=== PATIENT | female | born 1985 | race African-American/Black ===

== ENCOUNTER 2020-07-04 10:12 | Outpatient (CLI) | payer OTHER, SELFPAY ==
--- NOTE | ~2020-07-04 | XR_ITS ---
EXAMINATION: XR hysterosalpingogram INDICATION: Infertility TECHNIQUE: Hysterosalpingogram was performed by Dr. Annalisa Huston MD with fluoroscopic fran scott. I was present to obtain fluoroscopic images. Fluoroscopy exposure time was 1.0 minutes. The DAP f or this procedure was 12.502 Gycm2. FINDINGS: Fluoroscopic images demonstrate a normal appearing endometrial cavity which has been cannul ated. The lower endocervical canal appears slightly elongated, clinical significance unclear. Upon in jection of contrast, the right fallopian tube does not opacify beyond its proximal portion near the u terine fundus. The left fallopian tube opacifies and free spillage is seen on the left. IMPRESSION: 1. Free spillage on the left and nonfilling of the right fallopian tube beyond its proximal aspect. Reviewed, dictated and finalized at location A.
[2020-07-04 11:21] LABS: Beta HCG Quantitative < 2.39 mIU/ML
== END 2020-07-04 10:13 | disposition home or self-care (01) ==
LOC: ANHIMG 10:22
PROVIDERS: PCP Family Medicine; Visit Provider Obstetrics & Gynecology Gynecology
DX: Z31.41 Encounter for fertility testing (principal)
CPT/HCPCS: 36415; 58340; 74740; 84702

== ENCOUNTER 2020-07-11 10:38 | Outpatient (CLI) | payer OTHER, SELFPAY ==
[2020-07-15 13:33] LABS: Progesterone 17.4 ng/mL (***)
== END 2020-07-11 10:39 | disposition home or self-care (01) ==
LOC: ANHLAB 10:40
PROVIDERS: PCP Family Medicine; Visit Provider Obstetrics & Gynecology Gynecology
DX: Z31.41 Encounter for fertility testing (principal)
CPT/HCPCS: 36415; 84144

== ENCOUNTER 2020-07-25 17:16 | Outpatient (CLI) | payer OTHER, SELFPAY ==
[2020-07-25 19:44] LABS: Vitamin D 25 Hydroxy 28.5 ng/mL
== END 2020-07-25 17:17 | disposition home or self-care (01) ==
LOC: ANHLAB 17:17
PROVIDERS: PCP Family Medicine; Visit Provider Obstetrics & Gynecology Gynecology
DX: E55.9 Vitamin D deficiency, unspecified (principal)
CPT/HCPCS: 36415; 82306

== ENCOUNTER 2020-09-01 13:53 | Outpatient (CLI) | payer OTHER, SELFPAY ==
--- NOTE | ~2020-09-01 | MR_ITS ---
EXAMINATION: MR pituitary wo/w con DATE: 09/01/2020 15:08 INDICATION: Hyperprolactinemia. TECHNIQUE: Magnetic resonance imaging (MRI) of the brain and brainstem was performed without and with 20 mL MultiHance intravenous contrast. Whole-brain sequences included sagittal T1-weighted FSE, axia l diffusion-weighted FS EPI, axial T2*-weighted GRE, axial T2-weighted FLAIR Propeller, and axial T2- weighted Propeller. Small jnccy-rt-rtju sequences included sagittal and coronal T1-weighted FSE cente red at the pituitary. Postcontrast sequences included small mbjhp-oy-wryt coronal T1-weighted FSE in a time course and sagittal T1-weighted FSE and whole-brain axial T1-weighted FSE. Apparent diffusion coefficient (ADC) maps were created. COMPARISON: None. FINDINGS: The pituitary is normal in size with height of 3 mm and concave superior margin. There is n o intracranial hemorrhage, acute infarction, or abnormal intracranial mass lesion. The ventricles are normal in size. There is mild mucosal thickening in the ethmoid sinuses. The orbits are normal. The mastoid air cells are normal. IMPRESSION: 1. Normal brain. Normal pituitary. Reviewed, dictated and finalized at location B. [facility]
[2020-09-01 14:24] LABS: Estimated Glomerular Filt Rate > 60
== END 2020-09-01 13:54 | disposition home or self-care (01) ==
DX: E22.1 Hyperprolactinemia (principal)
CPT/HCPCS: 70553; A9577

== ENCOUNTER 2023-03-11 13:52 | Outpatient (CLI) | payer OTHER, SELFPAY ==
[2023-03-11 14:35] VITALS: BP 137/70; PULSE 89
[2023-03-11 14:42] VITALS: BP 137/70; PULSE 89
[2023-03-11 14:47] VITALS: BP 135/69; PULSE 85
[2023-03-11 14:57] LABS: Basophils Percent Auto 0.2 % (0.2-1.2); Eosinophils Absolute Auto 0.1 K/mm3 (0-0.3); Eosinophils Percent Auto 1.7 % (0-4.4); Hematocrit 34.3 % (37.0-47.0); Hemoglobin 11.3 g/dL (12.0-15.0); Immature Granulocyte Absolute 0.04 K/mm3 (0.00-0.031); Immature Granulocyte Percent A 0.7 % (0-0.5); Lymphocytes Absolute Auto 1.16 K/mm3 (0.9-3.2); Lymphocytes Percent Auto 19.7 % (18.3-44.2); Mean Corpuscular HGB Conc 32.9 g/dl (32-36); Mean Corpuscular Hemoglobin 31.5 pg (26-34); Mean Corpuscular Volume 95.5 fl (80-100); Mean Platelet Volume 8.7 fl (7.4-10.4); Monocytes Absolute Auto 0.4 K/mm3 (0.1-0.6); Monocytes Percent Auto 7.5 % (2.6-8.5); Neutrophils Absolute Auto 4.2 K/mm3 (1.3-6.7); Neutrophils Percent Auto 70.2 % (45.5-73.1); Platelet Count Result 338 k/mm3 (150-375); Red Blood Count 3.59 M/mm3 (4.2-5.4); Red Cell Distribution Width 13.8 % (11.5-14.5); White Blood Count 5.9 K/mm3 (4.5-10.0)
[2023-03-11 14:59] LABS: Appearance Urine Clear (Clear); Bilirubin Urine Negative (Negative); Blood Urine Negative (Negative); Color Urine Yellow (Yellow); Glucose Urine UA Negative (Negative); Ketones Urine Trace mg/dL (Negative); Leukocyte Esterase Ur Negative LEU/UL (NEGATIVE); Nitrate Urine Negative (Negative); Protein Urine Negative (Negative); Specific Grav Ur 1.023 (1.001-1.035); Urobilinogen Urine 0.2 mg/dL (<2.0); pH Urine 6.5 (5.0-9.0)
[2023-03-11 15:02] VITALS: BP 127/65; PULSE 78
[2023-03-11 15:08] LABS: Alanine Aminotransferase 31 U/L (6-35); Albumin Level 3.7 g/dL (3.5-5.1); Alkaline Phosphatase 38 U/L (38-126); Anion Gap 6 mmol/L (8-16); Aspartate Amino Transferase 35 U/L (14-36); Bilirubin,Total 0.2 mg/dL (0.2-1.3); Blood Urea Nitrogen 9 mg/dL (7-17); Calcium 8.4 mg/dL (8.4-10.2); Carbon Dioxide 23 mmol/L (22-30); Chloride 105 mmol/L (98-107); Estimated Glomerular Filt Rate > 60; Glucose 91 mg/dL (65-110); Potassium 3.5 mmol/L (3.4-5.0); Sodium 134 mmol/L (137-145); Uric Acid 3.8 mg/dL (2.5-7.5)
[2023-03-11 15:27] LABS: Add Urine Microscopic? NO
[2023-03-11 15:36] LABS: Creatinine Urine 152.1 mg/dL
--- NOTE | 2023-03-11 15:56 | PC.NURSE ---
called Dr. Huston with PIH lab result and BPs. discharge order received
[2023-03-11 16:47] LABS: Total Protein Urine Random < 5 mg/dL; Ur Ttl Prot Creatinine Ratio < 0.03 mg/mg (0-0.20)
== END 2023-03-11 16:00 | disposition home or self-care (01) ==
LOC: ANHOBOP 14:15 → ANHLDR 14:18
PROVIDERS: Visit Provider Obstetrics & Gynecology Gynecology
DX: O13.9 Gestational [pregnancy-induced] hypertension without significant proteinuria, unspecified trimester (principal); Z3A.00 Weeks of gestation of pregnancy not specified
CPT/HCPCS: 36415; 80053; 81003; 82570; 84156; 84550; 85025; 87086; 99199

== ENCOUNTER 2023-04-06 07:37 | Outpatient (CLI) | payer OTHER, SELFPAY ==
[2023-04-06 07:58] VITALS: BP 138/78; PULSE 87
[2023-04-06 08:01] VITALS: BP 131/75; PULSE 89
[2023-04-06 08:16] VITALS: BP 143/75; PULSE 80
[2023-04-06 08:31] VITALS: BP 143/73; PULSE 80
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
[2023-04-06 08:58] VITALS: BP 138/78
== END 2023-04-06 08:58 | disposition home or self-care (01) ==
LOC: ANHOBOP 07:43 → ANHOBPP 07:44
PROVIDERS: Visit Provider Obstetrics & Gynecology Gynecology
DX: O13.9 Gestational [pregnancy-induced] hypertension without significant proteinuria, unspecified trimester (principal)
CPT/HCPCS: 99199

== ENCOUNTER 2023-05-27 19:13 | Observation (INO) | payer OTHER, SELFPAY ==
[2023-05-27 19:13] VITALS: BMI 52.7
[2023-05-27 19:36] VITALS: BP 140/72; PULSE 85
--- NOTE | 2023-05-27 19:36 | OBADM ---
This patient, Malini Ceja, admitted to the OB room OB Post 117 for observation. Patient/family oriented to hospital policies and general routines including ID bracelet, bed and alarms, visiting hours, pain management, procedures, bathroom and other care routines, personal items, smoking policy, room service/diet, and visiting hours. Patient/Family are encouraged to report perceived risks to care and to ask questions if they do not understand what they are told or what they should do.
--- NOTE | 2023-06-03 13:32 | PM.OBTRLD ---
OB - Triage/Final Diagnosis Visit Information Comments/Additional reasons for admission: I have assessed the risk for this patient, Malini Ceja, and determined that she would benefit from observation care. Final Diagnosis (1) Back pain affecting : Code(s): O99.891 - Other specified diseases and conditions complicating ; M54.9 - Dorsalgia, unspecified Status: Acute
== END 2023-05-27 20:09 | disposition home or self-care (01) ==
PROVIDERS: Admitting Provider Obstetrics & Gynecology; Visit Provider Obstetrics & Gynecology
DX: O99.891 Other specified diseases and conditions complicating pregnancy (principal); M54.9 Dorsalgia, unspecified; Z3A.25 25 weeks gestation of pregnancy
CPT/HCPCS: G0378; G0379

== ENCOUNTER 2023-07-09 15:59 | Outpatient (RCR) | payer OTHER, SELFPAY ==
--- NOTE | ~2023-07-09 | US_ITS ---
EXAMINATION: US OB BPP wo non-stress DATE: 07/09/2023 18:12 INDICATION: arrhythmia. Third trimester. TECHNIQUE: Real-time pelvic ultrasound was performed. COMPARISON: None. FINDINGS: There is a single living fetus in transverse lie. The placenta is fundal and posterior. heart rate is 152 beats per minute (bpm). The amniotic fluid index is 17.0 cm, which is normal. Biophysical profile performed by the technologist: breathing (30 sec sustained breathing in 30 minutes): 2 out of 2 movement (3 gross body movements in 30 minutes): 2 out of 2 tone (one episode of ysjgyry-jabsnwand-wngsiky limb movement): 2 out of 2 Amniotic fluid pocket (2 cm): 2 out of 2 Total score: 8 out of 8 IMPRESSION: 1. Single living fetus in transverse lie. 2. Biophysical profile 8 out of 8. Reviewed, dictated and finalized at location E.
[2023-07-09 16:30] LABS: Basophils Percent Auto 0.1 % (0.2-1.2); Eosinophils Absolute Auto 0.1 K/mm3 (0-0.3); Eosinophils Percent Auto 0.9 % (0-4.4); Hematocrit 34.8 % (37.0-47.0); Hemoglobin 11.1 g/dL (12.0-15.0); Immature Granulocyte Absolute 0.04 K/mm3 (0.00-0.031); Immature Granulocyte Percent A 0.6 % (0-0.5); Lymphocytes Absolute Auto 1.19 K/mm3 (0.9-3.2); Lymphocytes Percent Auto 17.8 % (18.3-44.2); Mean Corpuscular HGB Conc 31.9 g/dl (32-36); Mean Corpuscular Hemoglobin 31.1 pg (26-34); Mean Corpuscular Volume 97.5 fl (80-100); Mean Platelet Volume 9.1 fl (7.4-10.4); Monocytes Absolute Auto 0.6 K/mm3 (0.1-0.6); Monocytes Percent Auto 8.8 % (2.6-8.5); Neutrophils Absolute Auto 4.8 K/mm3 (1.3-6.7); Neutrophils Percent Auto 71.8 % (45.5-73.1); Platelet Count Result 276 k/mm3 (150-375); Red Blood Count 3.57 M/mm3 (4.2-5.4); White Blood Count 6.7 K/mm3 (4.5-10.0)
[2023-07-09 17:41] VITALS: BP 146/78; PULSE 90
[2023-07-09 17:44] LABS: Alanine Aminotransferase 28 U/L (6-35); Albumin Level 3.9 g/dL (3.5-5.1); Alkaline Phosphatase 72 U/L (38-126); Anion Gap 7 mmol/L (8-16); Aspartate Amino Transferase 35 U/L (14-36); Bilirubin,Total 0.5 mg/dL (0.2-1.3); Blood Urea Nitrogen 12 mg/dL (7-17); Calcium 9.3 mg/dL (8.4-10.2); Carbon Dioxide 21 mmol/L (22-30); Chloride 104 mmol/L (98-107); Estimated Glomerular Filt Rate > 60; Glucose 96 mg/dL (65-110); Potassium 3.6 mmol/L (3.4-5.0); Sodium 132 mmol/L (137-145)
== END 2023-10-07 23:59 | disposition home or self-care (01) ==
LOC: ANHOBOP 15:59
PROVIDERS: Visit Provider Advanced Practice Midwife
DX: O36.8330 Maternal care for abnormalities of the fetal heart rate or rhythm, third trimester, not applicable or unspecified (principal); Z3A.31 31 weeks gestation of pregnancy
CPT/HCPCS: 36415; 59025; 76819; 80053; 85025

== ENCOUNTER 2023-08-05 14:37 | Observation (INO) | payer OTHER, SELFPAY ==
[2023-08-05 15:16] VITALS: BP 149/77; PULSE 87
[2023-08-05 15:32] VITALS: BP 148/79; PULSE 89
--- NOTE | 2023-08-05 15:38 | OBADM ---
This patient, Malini Ceja, admitted to the OB room OB Post 115 for observation. Patient/family oriented to hospital policies and general routines including ID bracelet, bed and alarms, visiting hours, pain management, procedures, bathroom and other care routines, personal items, smoking policy, room service/diet, and visiting hours. Patient/Family are encouraged to report perceived risks to care and to ask questions if they do not understand what they are told or what they should do.
[2023-08-05 15:47] VITALS: BP 152/81; PULSE 83
[2023-08-05 16:01] VITALS: BP 151/75; PULSE 84
--- NOTE | 2023-08-07 07:52 | PM.OBTRLD ---
OB - Triage/Final Diagnosis Visit Information Date of evaluation: 08/05/23 Reason for evaluation: threatened labor Comments/Additional reasons for admission: I have assessed the risk for this patient, Malini Adrianne Ceja, and determined that she would benefit from observation care.
== END 2023-08-05 16:30 | disposition home or self-care (01) ==
PROVIDERS: Admitting Provider Advanced Practice Midwife; Visit Provider Advanced Practice Midwife
DX: O47.03 False labor before 37 completed weeks of gestation, third trimester (principal); Z3A.31 31 weeks gestation of pregnancy
CPT/HCPCS: G0378; G0379

== ENCOUNTER 2023-08-07 09:59 | Outpatient (CLI) | payer OTHER, SELFPAY ==
[2023-08-07] VITALS (34 sets, daily range): BP systolic 131–149; BP diastolic 68–87; PULSE 82–104; O2SAT 94–98; BMI 51.9
--- NOTE | 2023-08-07 10:31 | PC.NURSE ---
Called Tram Lewis CNM. Informed of patients arrival reporting severe blood pressures at home, headache, and blurred vision. Blurred vision resolved prior to arrival. Informed of initial BP's. No epigastric RUQ pain or edema noted. FHT tones reactive with 10 second drops in FHR noted. No contractions at this time. Orders received for labs and to continue monitoring BP's.
[2023-08-07 10:55] LABS: Basophils Percent Auto 0.2 % (0.2-1.2); Eosinophils Absolute Auto 0.1 K/mm3 (0-0.3); Eosinophils Percent Auto 0.8 % (0-4.4); Hematocrit 33.5 % (37.0-47.0); Hemoglobin 10.9 g/dL (12.0-15.0); Immature Granulocyte Absolute 0.03 K/mm3 (0.00-0.031); Immature Granulocyte Percent A 0.5 % (0-0.5); Lymphocytes Absolute Auto 0.78 K/mm3 (0.9-3.2); Lymphocytes Percent Auto 12.8 % (18.3-44.2); Mean Corpuscular HGB Conc 32.5 g/dl (32-36); Mean Corpuscular Hemoglobin 31.6 pg (26-34); Mean Corpuscular Volume 97.1 fl (80-100); Mean Platelet Volume 8.9 fl (7.4-10.4); Monocytes Absolute Auto 0.6 K/mm3 (0.1-0.6); Neutrophils Absolute Auto 4.7 K/mm3 (1.3-6.7); Neutrophils Percent Auto 76.7 % (45.5-73.1); Platelet Count Result 267 k/mm3 (150-375); Red Blood Count 3.45 M/mm3 (4.2-5.4); Red Cell Distribution Width 14.2 % (11.5-14.5); White Blood Count 6.1 K/mm3 (4.5-10.0)
[2023-08-07 11:01] LABS: Creatinine Urine 50.7 mg/dL; Total Protein Urine Random 16 mg/dL; Ur Ttl Prot Creatinine Ratio 0.32 mg/mg (0-0.20)
[2023-08-07 11:03] LABS: Alanine Aminotransferase 27 U/L (6-35); Albumin Level 3.5 g/dL (3.5-5.1); Alkaline Phosphatase 87 U/L (38-126); Anion Gap 10 mmol/L (8-16); Aspartate Amino Transferase 34 U/L (14-36); Bilirubin,Total 0.6 mg/dL (0.2-1.3); Blood Urea Nitrogen 8 mg/dL (7-17); Calcium 9.2 mg/dL (8.4-10.2); Carbon Dioxide 20 mmol/L (22-30); Chloride 105 mmol/L (98-107); Estimated Glomerular Filt Rate > 60; Glucose 89 mg/dL (65-110); Potassium 3.6 mmol/L (3.4-5.0); Sodium 135 mmol/L (137-145); Uric Acid 4.2 mg/dL (2.5-7.5)
[2023-08-07] MEDS: ACETAMINOPHEN 500 MG TABLET 1000 MG PO (11:20)
--- NOTE | 2023-08-07 12:15 | PC.NURSE ---
Spoke with PUSHPA Ugalde regarding discharge orders. Patient denies headache at this time. Bp have been reported to CNMW. Patient to receive celestone injection x1 upon discharge today and will come back tomorrow for BP check and another celestone injection. Patient verbalizes understanding. Education regarding PIH symptoms and instructed to keep checking BPs at home.
[2023-08-07] MEDS: BETAMETHASONE SOD PHOS/ACETATE 30 MG/5 ML VIAL 12 MG IM (12:33)
--- NOTE | 2023-08-07 19:19 | PM.OBTRLD ---
OB - Triage/Final Diagnosis Visit Information Date of evaluation: 08/07/23 Reason for evaluation: other (elevated BP at home) Comments/Additional reasons for admission: I have assessed the risk for this patient, Malini Ceja, and determined that she would benefit from observation care. Evaluation Laboratory results: Laboratory Tests 08/07/23 10:42 WBC 6.1 RBC 3.45 L Hgb 10.9 L Hct 33.5 L MCV 97.1 MCH 31.6 MCHC 32.5 RDW 14.2 Plt Count 267 MPV 8.9 Immature Gran % (Auto) 0.5 Neut % (Auto) 76.7 H Lymph % (Auto) 12.8 L Rabun % (Auto) 9.0 H Eos % (Auto) 0.8 Baso % (Auto) 0.2 Lymph # (Auto) 0.78 L Rabun # (Auto) 0.6 Eos # (Auto) 0.1 Baso # (Auto) 0.0 Abs Immat Gran (auto) 0.03 Absolute Neuts (auto) 4.7 Absolute Nucleated RBC 0.0 Nucleated RBC % 0.0 Sodium 135 L Potassium 3.6 Chloride 105 Carbon Dioxide 20 L Anion Gap 10 BUN 8 Creatinine 0.50 L Estim Creat Clear Calc Not Reportable Estimated GFR > 60 Glucose 89 Uric Acid 4.2 Calcium 9.2 Total Bilirubin 0.6 AST 34 ALT 27 Alkaline Phosphatase 87 Total Protein 7.0 Albumin 3.5 U Random Total Protein 16 Urine Creatinine 50.7 Protein/Creat Ratio 2 0.32 H Vital signs: Vital Signs - 24 hr 08/07/23 10:13 08/07/23 10:18 08/07/23 10:23 Pulse Rate Blood Pressure Blood Pressure [Left Arm] Pulse Oximetry 98 95 96 08/07/23 10:25 08/07/23 10:28 08/07/23 10:31 Pulse Rate 104 H 96 Blood Pressure 133/82 133/74 Blood Pressure [Left Arm] Pulse Oximetry 97 08/07/23 10:33 08/07/23 10:35 08/07/23 10:38 Pulse Rate 94 Blood Pressure 131/82 Blood Pressure [Left Arm] Pulse Oximetry 97 96 08/07/23 10:46 08/07/23 10:48 08/07/23 10:53 Pulse Rate 92 Blood Pressure 139/81 Blood Pressure [Left Arm] Pulse Oximetry 96 94 08/07/23 10:58 08/07/23 11:01 08/07/23 11:03 Pulse Rate 95 Blood Pressure 136/68 Blood Pressure [Left Arm] Pulse Oximetry 94 98 08/07/23 11:08 08/07/23 11:13 08/07/23 11:16 Pulse Rate 85 Blood Pressure 138/75 Blood Pressure [Left Arm] Pulse Oximetry 95 96 08/07/23 11:18 08/07/23 11:23 08/07/23 11:28 Pulse Rate Blood Pressure Blood Pressure [Left Arm] Pulse Oximetry 95 94 97 08/07/23 11:31 08/07/23 11:33 08/07/23 11:38 Pulse Rate 88 Blood Pressure 148/85 H Blood Pressure [Left Arm] Pulse Oximetry 95 96 08/07/23 11:43 08/07/23 11:46 08/07/23 11:48 Pulse Rate 85 Blood Pressure 142/83 H Blood Pressure [Left Arm] Pulse Oximetry 96 96 08/07/23 11:53 08/07/23 11:58 08/07/23 12:01 Pulse Rate 88 Blood Pressure 149/87 H Blood Pressure [Left Arm] Pulse Oximetry 96 97 08/07/23 12:03 08/07/23 12:08 08/07/23 12:26 Pulse Rate 103 H Blood Pressure Blood Pressure [Left Arm] 133/82 Pulse Oximetry 97 96 08/07/23 12:12 08/07/23 10:48 Pulse Rate 89 92 Blood Pressure 139/81 Blood Pressure [Left Arm] 142/83 H Pulse Oximetry Comments: NST reactive, All BPs normal and mild range. Labs stable. Plan of care discussed with Dr. Huston. Plan for Celestone administration. Pt to return tomorrow for 2nd celestone and BP check.
[2023-08-08 08:21] LABS: Appearance Urine Clear (Clear); Bilirubin Urine Negative (Negative); Blood Urine Negative (Negative); Color Urine Yellow (Yellow); Glucose Urine UA Negative (Negative); Ketones Urine Negative (Negative); Leukocyte Esterase Ur Negative LEU/UL (Negative); Nitrate Urine Negative (Negative); Protein Urine Negative (Negative); Specific Grav Ur 1.008 (1.001-1.035); Urobilinogen Urine 0.2 mg/dL (<2.0); pH Urine 6.5 (5.0-9.0)
[2023-08-08 08:31] LABS: Add Urine Microscopic? NO
== END 2023-08-07 12:40 | disposition home or self-care (01) ==
LOC: ANHOBOP 10:04 → ANHOBPP 10:05
PROVIDERS: Advanced Practice Midwife; Visit Provider Obstetrics & Gynecology Gynecology
DX: O10.919 Unspecified pre-existing hypertension complicating pregnancy, unspecified trimester (principal)
CPT/HCPCS: 36415; 59025; 80053; 81003; 82570; 84156; 84550; 85025; 96372; 99199; A9270; J0702

== ENCOUNTER 2023-08-08 12:38 | Outpatient (CLI) | payer OTHER, SELFPAY ==
[2023-08-08 13:02] VITALS: BP 147/76; PULSE 92
[2023-08-08] MEDS: BETAMETHASONE SOD PHOS/ACETATE 30 MG/5 ML VIAL 12 MG IM (13:03)
[2023-08-08 13:16] VITALS: BP 147/68; PULSE 94
--- NOTE | 2023-08-08 13:18 | PC.NURSE ---
Patient states she has been feeling increased tightening in abdomen upon arrival to unit. Will put on continuous monitor for further evaluation.
[2023-08-08 13:46] VITALS: BP 125/73; PULSE 97
[2023-08-08 14:01] VITALS: BP 136/70; PULSE 94
--- NOTE | 2023-08-08 14:06 | PC.NURSE ---
Spoke with Tram Lewis CNM regarding patient BPs. Reported contractions noted on strip. Patient states she has not felt any contractions since being put on the monitor. Patient denies symptoms of headache, visual disturbances, and swelling. Reports epigastric pain from heartburn, but states this has been her normal throughout . OK to d/c per Tram Ramon CNM.
[2023-08-08 14:45] VITALS: BP 136/70; PULSE 94
== END 2023-08-08 14:10 | disposition home or self-care (01) ==
LOC: ANHOBOP 12:43 → ANHOBPP 12:43
PROVIDERS: Visit Provider Obstetrics & Gynecology Gynecology
DX: O47.9 False labor, unspecified (principal)
CPT/HCPCS: 59025; 96372; 99199; J0702

== ENCOUNTER 2023-08-12 13:24 | Outpatient (CLI) | payer OTHER, SELFPAY ==
[2023-08-12 13:43] LABS: Hematocrit 34.4 % (37.0-47.0); Hemoglobin 11.2 g/dL (12.0-15.0); Mean Corpuscular HGB Conc 32.6 g/dl (32-36); Mean Corpuscular Volume 98.3 fl (80-100); Mean Platelet Volume 9.1 fl (7.4-10.4); Platelet Count Result 303 k/mm3 (150-375); Red Cell Distribution Width 14.2 % (11.5-14.5); White Blood Count 7.5 K/mm3 (4.5-10.0)
[2023-08-13 15:45] LABS: Rapid Plasma Reagin Non-Reactive (NonReactive)
== END 2023-08-12 13:25 | disposition home or self-care (01) ==
LOC: ANHLAB 13:26
PROVIDERS: Visit Provider Obstetrics & Gynecology Gynecology
DX: Z34.93 Encounter for supervision of normal pregnancy, unspecified, third trimester (principal); Z3A.00 Weeks of gestation of pregnancy not specified
CPT/HCPCS: 36415; 85027; 86592; 86850; 86900; 86901

== ENCOUNTER 2023-08-13 05:24 | Inpatient (IN) | payer OTHER, SELFPAY ==
[2023-08-13] VITALS (38 sets, daily range): BP systolic 136–166; BP diastolic 64–85; PULSE 51–105; RESP 15–23; TEMP 36.1–37.4; O2SAT 69–100; BMI 51.4
--- NOTE | 2023-08-13 05:24 | LDADM ---
This patient, Malini Ceja, was admitted to Labor/Delivery/Recovery 120 on 08/13/23 at 05:24. Plans for labor, pain management and were discussed with patient. Patient/family oriented to hospital policies and general routines including ID bracelet, bed and alarms, visiting hours, pain management, procedures, bathroom and other care routines, personal items, smoking policy, room service/diet and guest tray routines, security routines, and visiting hours. Patient/Family are encouraged to report perceived risks to care and to ask questions if they do not understand what they are told or what they should do. See [facility] for further documentation.
[2023-08-13] MEDS: LACTATED RINGERS 1,000 ML 125 ML IV CONT ×2 (05:58→06:42)
--- NOTE | 2023-08-13 06:52 | P.PNAN_ITS ---
Anes - Initial Pre Proc Eval Procedure: Operation Date: 08/13/23 07:30 Proposed Procedures p Section - Annalisa Huston MD Date/Time: 08/13/23 06:52 Surgeon: Annalisa Huston MD Pre Op Diagnosis: C/S Patient Data Age: 38 Gender: F Height: 1.6 m Weight: 131.75 kg Last Vital Signs Pulse 95 08/13/23 06:00 BP 138/80 08/13/23 06:00 Allergies Allergy/AdvReac Type Severity Reaction Status Date / Time No Known Allergies Allergy Verified 08/05/23 16:02 Home Medications Medication Instructions Recorded Confirmed Type aspirin 81 mg tablet 81 mg PO BID 03/11/23 08/07/23 History labetalol 200 mg tablet 300 mg PO Q8H 03/11/23 08/07/23 History vit no.95-ferrous 1 tablet PO DAILY 03/11/23 08/07/23 History fumarate 28 mg-folic acid 800 mcg tablet () Patient hx anesthesia problems: none Family hx anesthesia problems: none Results Review: All pre-operative results and documents have been reviewed as part of the pre- operative evaluation. [facility] Family History Family History (Updated 08/05/23 @ 16:05 by Estefany Cobb RN) Other No pertinent family history Social History Social History Smoking status: Never smoker Substance use: never Lack of Transportation: No Lack of Food: Never True Current Housing: I Have Housing Concerned About Future Housing: No Difficulty Paying Gas/Electric Bills: No Difficulty Paying for Meds: No Currently Unemployed: No Education: Master's Degree or Higher Difficulty w/ Childcare or Family Care: No Spiritual care concerns: No Anes - Eval Final PreProcedure Day of Procedure 08/13/23 06:52 Patient weight: obese Heart: regular rate and rhythm Lungs: clear to auscultation and normal air movement Airway: Mallampati scale class II Neurological: alert and oriented Last oral intake: >/= 8 hours ASA classification: III Emergent: no Anesthetic plan: proceed Anesthesia type and monitoring: regional spinal and standard monitoring Results Review: All pre-operative results and documents have been reviewed as part of the pre- operative evaluation. Informed Consent: The patient's anesthetic plan and its attendant risks and benefits were discussed with the patient/family/POA. Questions were solicited and answers provided to the satisfaction of the patient/family/POA.
--- NOTE | 2023-08-13 07:25 | WPDHPUPDATE1 ---
History and Physical Update Update Date/Time: 08/13/23 07:25 History and Physical has been reviewed, including an updated exam of the patient. There are NO changes in the patient's condition. Risks, benefits, and alternatives have been discussed and questions answered. Patient agrees to proceed with procedure.
--- NOTE | 2023-08-13 07:26 | PM.IMHP ---
H&P: HPI History of Present Illness Date/Time: 08/13/23 07:26 Chief Complaint: Primary section+ Narrative: the patient is a 38-year-old 1 at 3 37 weeks being admitted for primary section. is complicated by chronic hypertension with increasing proteinuria as well as polyhydramnios. was conceived by in vitro fertilization. Due to previous multiple laparoscopic and hysteroscopic myomectomies the patient is having a section she has had greater than 100 fibroids removed and several times they entered the endometrium. The patient has also been followed by Maternal- Medicine due to her complex history. Due to advanced maternal age she underwent a level 2 ultrasound and noninvasive testing which was low risk. labs A-positive, rubella immune, RPR negative, hepatitis B surface antigen negative, HIV negative, group B strep positive. Risks of surgery including injury to internal organs (especially bladder and bowel ), deep vein thrombosis, infection, and hemorrhage requiring transfusion or hysterectomy are all reviewed prior to the surgery. Review of Systems Review of Systems: not repeated day of surgery; patient states no changes in status PMFSH Past Medical History Medical History (Updated 08/13/23 @ 07:33 by Annalisa Huston MD) Anxiety Surgical History Surgical History (Updated 08/13/23 @ 07:33 by Annalisa Huston MD) H/O myomectomy 2017 laparoscopic myomectomy 10+ removed, November of 2020 open myomectomy 40+ removed, August of 2021 open myomectomy greater than 90 removed, November of 2021 hysteroscopic myomectomies Family History Family History (Updated 08/05/23 @ 16:05 by Estefany Cobb RN) Other No pertinent family history Social History Social History Smoking status: Never smoker Substance use: never Lack of Transportation: No Lack of Food: Never True Current Housing: I Have Housing Concerned About Future Housing: No Difficulty Paying Gas/Electric Bills: No Difficulty Paying for Meds: No Currently Unemployed: No Education: Master's Degree or Higher Difficulty w/ Childcare or Family Care: No Spiritual care concerns: No Meds Home Medications and Allergies Home Medications Medication Instructions Recorded Confirmed Type aspirin 81 mg tablet 81 mg PO BID 03/11/23 08/07/23 History labetalol 200 mg tablet 300 mg PO Q8H 03/11/23 08/07/23 History vit no.95-ferrous 1 tablet PO DAILY 03/11/23 08/07/23 History fumarate 28 mg-folic acid 800 mcg tablet () Allergies Allergy/AdvReac Type Severity Reaction Status Date / Time No Known Allergies Allergy Verified 08/05/23 16:02 Vital Signs Vital Signs - 24 hr 08/13/23 05:52 08/13/23 06:00 Pulse Rate 92 95 Blood Pressure 153/76 H 138/80 Exam Const: General: healthy appearing, alert and obese ( pre weight 279 current weight 294) Orientation/consciousness: patient oriented x3 Resp: Effort & Inspection: normal respiratory effort Auscultation: clear to auscultation bilaterally GI: GI Palp: Yes Soft to palpation, No Tenderness to palpation present (GI) and Yes Other GI palpation findings present ( fundal height 47cm) : External Female Exam: normal external appearance Speculum Exam - Vagina: normal appearance of the vagina and normal vaginal discharge Speculum Exam - Cervix: normal appearance of the cervix Bimanual Exam- Adnexa, other: normal adnexae and No adnexal tenderness Ne
[2023-08-13] MEDS: ceFAZolin 3 GM/D5W 100 ML 100 ML IVPB (07:31)
--- NOTE | 2023-08-13 08:58 | W.PM.PROC2 ---
Procedure Note - Detailed Date of Procedure 08/13/23 Pre-op Diagnosis Intrauterine at 37 weeks Previous extensive myomectomy Chronic hypertension with proteinuria Post-op Diagnosis Same Procedure Performed Primary low-transverse section with T extension Surgeon Annalisa Huston MD Anesthesia Spinal Findings Male weighing 6lb 2oz. Apgars were pending at time this dictation. Large fibroid at the lower uterine segment. Multiple fibroids the serosal surface. Normal-appearing tubes and ovaries. Description of Procedure The patient is taken to the operating room and placed under spinal anesthesia in the dorsal supine position with a leftward tilt. Once anesthesia was deemed adequate she was prepped and draped in usual sterile fashion. A Pfannenstiel skin incision was made below the midline incision and carried down to the underlying layer of fascia. The fascia was incised in the midline and extended laterally with Hwang scissors. The fascia was densely adherent to the underlying tissue was dissected off using sharp dissection while tenting with [facility]. The peritoneum was entered during this process. There was 1 dense band of peritoneum adherent to the left lower uterine fundus that was dissected off using sharp and blunt dissection. The peritoneal incision was extended with blunt traction. The uterus was palpated and no adhesions were noted anterior therefore the Vincent O retractor was placed. The lower uterine segment was incised in a transverse fashion with the scalpel attempting to go below the large fibroid in the lower uterine segment. The tissue was quite thick approximately 4cm indicating we were within the lower portion of the large fibroid. Once the amniotic cavity was reached the incision was extended laterally using bandage scissors and blunt traction. palpated as vertex but was very high in the uterus. Membranes were ruptured and the infant rotated to transverse back down with the head in the right lower quadrant. Attempts to rotate the that back into the vertex position were not successful. The breech was in the left upper uterus and was not able to be reached through the incision therefore the incision was extended in the midline in a T-fashion with bandage scissors. After multiple attempts the right foot is able to be grasped and the rotated while pulling the leg down through the incision. Once the infant was rotated into the double footling breech presentation delivery occurred quickly with both feeding delivered followed by the breech and delivered to the shoulders. The was rotated and the right arm splinted and delivered the infant was rotated in the left arm splinted and delivered and the head delivered and the infant was extended on the abdomen. The cord was quickly clamped and cut the handed to the waiting nursery nurse and paint brush maker. The cord blood and cord gases were taken. The placenta was removed using manual traction. The uterine incision is grasped with ring forceps over the larger bleeding vessels. The uterine incision was closed using 0 Monocryl in a running locked fashion. The T extension was closed separately also with an 0 Monocryl in a running locked fashion. A 2nd deep layer of 0 Monocryl was placed across the entire incision. An imbricating 3rd layer was placed over the incision of 0 Monocryl. Several additional dgipys-at-neols sutures were required for hemostasis. The Vincent O retractor was removed. The fascia was closed using 0 Vicryl in a running fashion. Subcutaneous tissue is irrigated and made hemostatic using Bovie cautery. Skin is closed using 4-0 Vicryl in a subcuticular fashion. Dermaflex was placed over the incision. Sponge, needle, and instrument counts are correct per the OR staff. Patient is awake and taken to recovery in stable condition. Estimated Blood Loss 1,665 Drains Yes (Leary catheter) Packing No Pathology Yes (Placenta)
[2023-08-13] MEDS: OXYTOCIN 30 UNITS/NS 500 ML 30 UNITS/500 ML BAG 125 UNITS IV CONT (09:37)
--- NOTE | 2023-08-13 11:15 | OBPPTRN ---
Patient transferred to post room #291 via stretcher. Support person present. Pt transferred to bed using the maxi air and 3 B's. Oriented to unit, room, information board, rooming in, admission packet and security measures. Patient verbalizes understanding.
[2023-08-13] MEDS: KETOROLAC 30 MG/ML VIAL (*BKC) IV PUSH (12:05)
[2023-08-13] MEDS: LIDOCAINE 5% PATCH 1 PATCH TRANSDERM (12:47)
[2023-08-13] MEDS: LABETALOL HCL 100 MG TABLET 300 MG PO ×2 (14:24→22:05)
[2023-08-13] MEDS: DEXTROSE 5%/0.45% SOD CHL 1,000 ML 125 ML IV CONT (14:25)
--- NOTE | 2023-08-13 15:39 | PC.NURSE ---
[id number] Purposefully rounded to assess needs. Mother has latched to the right breast using a football position. Infant demonstrates swallowing. Infant self detaches after 15 minutes and mother was encouraged to understand of the benefits of skin to skin (demonstrating unwrapping infant and placing upright on her chest), stimulating with massage touch, changing positions to encourage wakefulness, how to watch for early feeding cues, responsive feeding, feeding on demand (aiming for 8-12 times in 24 hours, about every 2-3 hours), milk production, building/maintaining a milk supply, duration of feeding, signs of adequate intake/output (pie demonstration) and how to record on the feeding sheet. Infant burped and stooled. Demonstrated a stool diaper change, then placed infant back [id number]. Infant demonstrated feeding cues so we reviewed positioning and ear, shoulder, hip alignment, supporting the breast to facilitate a deep latch, asymmetrical latch (off-center), leading with the chin with a big, open, wide gape and body close to mother. Infant latched optimally to the left breast in football position. Education given to mother of how to visualize suck/swallow ratios and listen for drinking at the breast which demonstrated. Infant was able to maintain latch without discomfort to mother. Nipple care reviewed with optimal latch and good positioning. Reviewed good handwashing when or touching the breast/nipples to prevent infection. Resources used to facilitate learning were used with the visual handouts, QR codes, tool. Mother voiced understanding of skin to skin, stimulating with massage touch, responsive feedings, hand expressed colostrum, talking to infant to encourage if it has been 2 -2.5 hours since the start of the last , to call if does not latch, or if there is discomfort with . Resources provided for inpatient assistance with name written on the communication board. Mother voiced understanding of information, asked appropriate, quality questions, demonstrated learning and will call if there is a request for assistance. Reported to the Primary RN.
[2023-08-13] MEDS: DOCUSATE SODIUM 100 MG CAPSULE PO (17:00)
[2023-08-13] MEDS: diphenhydrAMINE HCl INJ 50 MG/ML VIAL 25 MG IV PUSH (17:00)
[2023-08-13] MEDS: IBUPROFEN 600 MG TABLET PO (22:31)
[2023-08-13] MEDS: HYDROcodone/acetaminophen (*CRX) 5-325 MG TABLET 1 TAB PO (22:32)
[2023-08-13] MEDS: KCL 20 MEQ/D5/0.45% SOD CHL 1,000 ML 125 ML IV CONT (22:33)
[2023-08-14 04:40] VITALS: BP 134/83; PULSE 101; RESP 18; TEMP 36.5; O2SAT 97
[2023-08-14 05:47] LABS: Basophils Percent Auto 0.1 % (0.2-1.2); Eosinophils Percent Auto 0.4 % (0-4.4); Hematocrit 27.3 % (37.0-47.0); Hemoglobin 8.8 g/dL (12.0-15.0); Immature Granulocyte Absolute 0.06 K/mm3 (0.00-0.031); Immature Granulocyte Percent A 0.6 % (0-0.5); Lymphocytes Absolute Auto 1.03 K/mm3 (0.9-3.2); Lymphocytes Percent Auto 9.7 % (18.3-44.2); Mean Corpuscular HGB Conc 32.2 g/dl (32-36); Mean Corpuscular Hemoglobin 31.9 pg (26-34); Mean Corpuscular Volume 98.9 fl (80-100); Mean Platelet Volume 9.3 fl (7.4-10.4); Monocytes Absolute Auto 0.9 K/mm3 (0.1-0.6); Monocytes Percent Auto 8.6 % (2.6-8.5); Neutrophils Absolute Auto 8.6 K/mm3 (1.3-6.7); Neutrophils Percent Auto 80.6 % (45.5-73.1); Platelet Count Result 264 k/mm3 (150-375); Red Blood Count 2.76 M/mm3 (4.2-5.4); Red Cell Distribution Width 14.5 % (11.5-14.5); White Blood Count 10.6 K/mm3 (4.5-10.0)
--- NOTE | 2023-08-14 07:51 | P.PNOB_ITS ---
OB - PN: Subj Subjective Date/time seen: 08/14/23 07:51 Patient comments: no complaints and pain well controlled baby status: doing well OB - PN: Obj Data Labs 08/14/23 05:33 Labs: Laboratory Results - last 24 hr 08/14/23 05:33 WBC 10.6 H RBC 2.76 L Hgb 8.8 L Hct 27.3 L MCV 98.9 MCH 31.9 MCHC 32.2 RDW 14.5 Plt Count 264 MPV 9.3 Immature Gran % (Auto) 0.6 H Neut % (Auto) 80.6 H Lymph % (Auto) 9.[address] [place] [facility] % (Auto) 8.6 H Eos % (Auto) 0.4 Baso % (Auto) 0.1 L Lymph # (Auto) 1.03 [facility] # (Auto) 0.9 H Eos # (Auto) 0.0 Baso # (Auto) 0.0 Abs Immat Gran (auto) 0.06 H Absolute Neuts (auto) 8.6 H Absolute Nucleated RBC 0.0 Nucleated RBC % 0.0 OB - PN A/P Assessment and Plan (1) Chronic hypertension affecting : Code(s): O10.919 - Unspecified pre-existing hypertension complicating , unspecified trimester Status: Acute Assessment and Plan: Continue Labetalol (2) Proteinuria affecting : Code(s): O12.10 - Gestational proteinuria, unspecified trimester Status: Acute Plan day: 1 Plan: routine care Comments: Start iron for anemia Time Spent With Patient Time: Total time spent is greater than 50% in coordination of care (as documented) at patient's floor/unit and/or counseling patient: Exam : Bimanual exam- vagina & uterus: other (Uterus firm, nt @U)
--- NOTE | 2023-08-14 08:00 | PC.NURSE ---
PT introductions made and plan of care discussed per post , post op c section, pain management, breast bottle feeding, daily care activities. PT and spouse both recipients of such instructions and no barriers to learning identified at this time. PT received such instructions per one to one discussion, mom baby care guide and demonstrations this shift. PT verbalized understanding of such care.
[2023-08-14] MEDS: SIMETHICONE 80 MG TAB.CHEW PO ×3 (08:29→14:33)
[2023-08-14 08:30] VITALS: PULSE 80; PULSE 95; RESP 18; O2SAT 98
[2023-08-14] MEDS: DOCUSATE SODIUM 100 MG CAPSULE PO ×2 (08:30→16:09)
[2023-08-14] MEDS: LABETALOL HCL 100 MG TABLET 300 MG PO ×3 (08:30→22:00)
[2023-08-14] MEDS: MULTIVIT/MIN/PREN/FOL AC/IRON TABLET 1 TAB PO (08:31)
[2023-08-14] MEDS: IBUPROFEN 600 MG TABLET PO ×3 (08:31→20:30)
[2023-08-14] MEDS: HYDROcodone/acetaminophen (*CRX) 10-325 MG TABLET 1 TAB PO ×4 (08:31→23:40)
[2023-08-14] MEDS: POLYSACCHARIDE IRON COMPLEX 150 MG CAPSULE PO ×2 (08:32→16:09)
[2023-08-14] MEDS: LANOLIN (LANSINOH) 7.5 GM CREAM 1 APPLIC TOPICAL (08:32)
[2023-08-14 08:45] VITALS: BP 145/73; PULSE 95; RESP 18; TEMP 37.2; O2SAT 98
--- NOTE | 2023-08-14 10:25 | PC.NURSE ---
[id number] Breast pump provided due to ineffective on the shift supervisor melting. Instructions given on cleaning, care, usage, that there should be no pain, pumping schedule for milk production, collection, and storage of human milk. Parents are encouraged to record pumping schedule on the feeding sheet. Patient was assessed for correct placement, flange size, to pump for comfort and nipple stretching/stimulation for adequate milk production every 3 hours (8 times in 24 hours) 1-2 times at night. Parents voiced understanding of the education shared along with mom and baby guide for additional resource information. Reported to the primary RN.
--- NOTE | 2023-08-14 10:26 | PC.NURSE ---
0900 - Discussed paced bottle feeding with parents, demonstrated with hands only due to being in the nursery for testing, then visual educational handout given to the parents for additional learning. Parents voiced appreciation and understanding.
--- NOTE | 2023-08-14 13:39 | WPDANLDNPN2 ---
Anes-Prog Note L&D-Neuraxial Date/Time: 08/14/23 13:39 Neuraxial medications: intrathecal PF morphine Opiod-related complaints: none Patient feedback: Patient satisfied with post-operative pain management.
--- NOTE | 2023-08-14 13:39 | WPDANLDPN2 ---
Anes-Prog Note L&D Date/Time: 08/14/23 13:39 Comfortable throughout: section Neuraxial method: spinal Epidural/Spinal procedure site: clean & non-tender Neuro status: Neuro function grossly intact. Cardiovascular status: normal Respiratory status: normal Airway patency: baseline Mental status: baseline Post-Op hydration status: normal Vital Signs: Last Vital Signs Temp 98.9 F 08/14/23 08:45 Pulse 95 08/14/23 08:45 Resp 18 08/14/23 08:45 BP 145/73 H 08/14/23 08:45 Pulse Ox 98 08/14/23 08:45 O2 Del Method Room Air 08/14/23 08:30 O2 Flow Rate 2 08/13/23 09:15 Pain score (VAS): 0/10 I/O: Intake & Output 08/13/23 08/14/23 08/14/23 23:59 07:59 15:59 Intake Total 500 1000 980 Output Total 350 2600 400 Balance 150 -1600 580 Post-procedural complaints: none Patient feedback: Patient satisfied with anesthetic care.
[2023-08-14 14:32] VITALS: PULSE 88
[2023-08-14] MEDS: LIDOCAINE 5% PATCH 1 PATCH TRANSDERM (14:33)
[2023-08-14 20:00] VITALS: BP 111/64; PULSE 102; RESP 20; TEMP 36.6; O2SAT 95
[2023-08-14] MEDS: HYDROcodone/acetaminophen (*CRX) 5-325 MG TABLET 1 TAB PO (20:30)
[2023-08-14 22:00] VITALS: PULSE 86
[2023-08-15] MEDS: IBUPROFEN 600 MG TABLET PO ×4 (02:25→23:47)
[2023-08-15] MEDS: HYDROcodone/acetaminophen (*CRX) 5-325 MG TABLET 1 TAB PO ×5 (02:25→16:10)
[2023-08-15 05:35] VITALS: BP 156/86; PULSE 78
[2023-08-15] MEDS: LABETALOL HCL 100 MG TABLET 300 MG PO ×3 (05:35→23:47)
--- NOTE | 2023-08-15 08:52 | PM.OBPNVD ---
OB - PN: Subj Subjective Date/time seen: 08/15/23 08:52 Interval history: She denies headaches, scotomata or RUQ pain, no lightheadedness or dizziness. Occasional tinge near right side of incision. Ambulating well. Patient comments: pain well controlled, tolerating diet and flatus present OB - PN: Obj Data Labs 08/14/23 05:33 OB - PN A/P Assessment and Plan (1) Delivery by section: Status: Acute Assessment and Plan: POD 2 s/p - she is doing well. Blood pressures mild elevated yesterday. No signs or symptoms of severe PIH. Continue Labetolol. Continue to monitor blood pressures. Time Spent With Patient Time: Total time spent is greater than 50% in coordination of care (as documented) at patient's floor/unit and/or counseling patient: Exam Const: General: comfortable and no acute distress Resp: Effort & Inspection: normal respiratory effort GI: Other: incision intact no drainage or erythema, fundus -1 umb nontender Extrem: General: normal to inspection and no calf tenderness Psych: Mental Status: mental status grossly normal
[2023-08-15] MEDS: POLYSACCHARIDE IRON COMPLEX 150 MG CAPSULE PO ×2 (09:15→16:10)
[2023-08-15] MEDS: MULTIVIT/MIN/PREN/FOL AC/IRON TABLET 1 TAB PO (09:15)
[2023-08-15 09:16] VITALS: BP 141/72; PULSE 92; RESP 18; TEMP 36.3; O2SAT 99
[2023-08-15] MEDS: DOCUSATE SODIUM 100 MG CAPSULE PO ×2 (09:16→16:10)
[2023-08-15 16:09] VITALS: PULSE 100
[2023-08-15] MEDS: HYDROcodone/acetaminophen (*CRX) 10-325 MG TABLET 1 TAB PO (19:20)
[2023-08-15] MEDS: SIMETHICONE 80 MG TAB.CHEW PO (19:20)
[2023-08-15 19:43] VITALS: BP 138/67; PULSE 106; RESP 18; TEMP 36.1; O2SAT 98
[2023-08-15 23:47] VITALS: PULSE 78
[2023-08-16] MEDS: HYDROcodone/acetaminophen (*CRX) 10-325 MG TABLET 1 TAB PO ×2 (05:08→23:50)
[2023-08-16 06:24] VITALS: PULSE 77
[2023-08-16] MEDS: LABETALOL HCL 100 MG TABLET 300 MG PO ×3 (06:24→23:49)
[2023-08-16] MEDS: IBUPROFEN 600 MG TABLET PO ×2 (08:54→16:14)
[2023-08-16] MEDS: MULTIVIT/MIN/PREN/FOL AC/IRON TABLET 1 TAB PO (08:54)
[2023-08-16] MEDS: POLYSACCHARIDE IRON COMPLEX 150 MG CAPSULE PO ×2 (08:54→16:14)
[2023-08-16] MEDS: DOCUSATE SODIUM 100 MG CAPSULE PO ×2 (08:54→16:14)
[2023-08-16] MEDS: HYDROcodone/acetaminophen (*CRX) 5-325 MG TABLET 1 TAB PO ×2 (08:55→16:14)
[2023-08-16 09:30] VITALS: BP 147/84; PULSE 95; RESP 24; TEMP 36.3; O2SAT 99
[2023-08-16 14:11] VITALS: PULSE 88
[2023-08-16 20:00] VITALS: BP 132/60; PULSE 100; RESP 18; TEMP 36.3; O2SAT 97
--- NOTE | 2023-08-16 22:21 | PM.OBPNVD ---
OB - PN: Subj Subjective Date/time seen: 08/16/23 0900 Interval history: Reports adequate pain control. Decrease lochia. Positive flatus. Ambulating well. She denies headaches, scotomata or RUQ pain. OB - PN: Obj Data Labs 08/14/23 05:33 OB - PN A/P Assessment and Plan (1) Delivery by section: Status: Acute Assessment and Plan: POD3. She is doing well. Baby not discharged. Continue routine post c -section care. Time Spent With Patient Time: Total time spent is greater than 50% in coordination of care (as documented) at patient's floor/unit and/or counseling patient: Exam Const: General: comfortable and no acute distress Resp: Effort & Inspection: normal respiratory effort GI: Other: fundus below umbilicus firm Psych: Mental Status: mental status grossly normal
[2023-08-16 23:49] VITALS: PULSE 100
[2023-08-17] MEDS: HYDROcodone/acetaminophen (*CRX) 5-325 MG TABLET 1 TAB PO (02:38)
[2023-08-17] MEDS: IBUPROFEN 600 MG TABLET PO (02:42)
[2023-08-17 06:44] VITALS: PULSE 88
[2023-08-17] MEDS: LABETALOL HCL 100 MG TABLET 300 MG PO (06:44)
[2023-08-17] MEDS: POLYSACCHARIDE IRON COMPLEX 150 MG CAPSULE PO (06:45)
[2023-08-17] MEDS: MULTIVIT/MIN/PREN/FOL AC/IRON TABLET 1 TAB PO (06:46)
[2023-08-17] MEDS: DOCUSATE SODIUM 100 MG CAPSULE PO (06:46)
[2023-08-17 06:50] VITALS: BP 148/75; PULSE 78; RESP 18; TEMP 36.4
--- NOTE | 2023-08-17 10:22 | PM.OBPNVD ---
OB - PN: Subj Subjective Date/time seen: 08/17/23 10:22 Interval history: Reports adequate pain control. Decrease lochia. Positive flatus. Ambulating well. She denies PIH symptoms. Patient comments: no complaints baby status: doing well OB - PN: Obj Data Labs 08/14/23 05:33 OB - PN A/P Assessment and Plan (1) Delivery by section: Status: Acute Assessment and Plan: POD4. She is doing well. Discharge today with baby discharge. (2) Chronic hypertension affecting : Code(s): O10.919 - Unspecified pre-existing hypertension complicating , unspecified trimester Status: Acute Assessment and Plan: No signs of pre-eclampsia. Mildly elevated labile blood pressures. Continue Labetolol. Discussed hypertension precautions. Time Spent With Patient Time: Total time spent is greater than 50% in coordination of care (as documented) at patient's floor/unit and/or counseling patient: Exam Const: General: comfortable and no acute distress Resp: Effort & Inspection: normal respiratory effort Auscultation: clear to auscultation bilaterally Cardio: Rate: regular rate Psych: Mental Status: mental status grossly normal
--- NOTE | 2023-08-17 10:27 | PM.DS ---
DS: Admitting Diagnosis Discharge Date 08/17/23 Admitting Diagnosis Previous myomectomy DS: Summary Hospital Course Hospital Course: She did well . On day 2 she had adequate pain control and was ambulating well, tolerating regular diet and positive flatus. No pre-eclampsia symptoms. Her Labetolol was continued. She had labile mild increase blood pressures. She was discharge to home when baby was allowed discharge. Time Spent with Patient Time attestation: Total time spent providing and/or coordinating discharge services: DS: Data Data Completed and Pending Pending studies at discharge: Pending at discharge 08/13/23 09:22 Surgical [PTH] Routine Discharge Plan Discharge Attending physician on discharge: Annalisa Huston Discharging Clinician: Jamil Ann Anticipated Discharge Date/Time: 08/17/23 10:25 Patient Disposition: Home, Self-Care Activity: no straining, no driving and pelvic rest Diet: low sodium Discharge Instructions: Education: Mom and Baby Guide Given to: Mother Follow-Up: Call your delivering provider's office for an appointment to be seen in: 1 Week Mom and baby should come to the [facility] for the follow-up appointment. Appointment Date/Time: August 19, 2023 at 9:00 am What to expect at your follow-up visit: Physical Assessment Call [phone] if you are unable to keep your appointment time. BREAST CARE: * Wear a snug supportive bra. * For engorgement discomfort: Breast Feeding: * Apply warm moist washcloths * Express milk as needed to relieve engorgement * Wear loose clothing * For sore nipples: * Identify correct latch-on * Apply warm moist washcloths before and after nursing * Air dry nipples after nursing * May apply Lansinoh cream to nipples ABDOMINAL INCISION: * Allow incision to air dry * Do NOT use lotions for powders on your incision * When showering, allow soap and water to run over the incision, but do not wash incision PERINEAL CARE: * Until bleeding stops, use your terra bottle after urinating * Change your pad frequently throughout the day * No tub baths until seen by your physician - You may shower ACTIVITY: * Rest as much as possible. * Do not exercise or lift anything heavier than your baby (such as laundry or other children.) * Avoid stairs or driving as much as possible. * Do not put anything into the vagina. No douching, tampons, or sexual activity until seen by physician. NOTIFY PHYSICIAN IF YOU HAVE ANY QUESTIONS OR IF ANY OF THE FOLLOWING SYMPTOMS OCCUR: * If your incision becomes red, swollen, or more painful than what you have experienced in the hospital. * If your vaginal bleeding becomes foul smelling. * If your vaginal bleeding becomes more heavy than a period or if your bleeding changes from pink to bright red. However, you may pass an occasional walnut-sized clot once or twice for the first week . * If you experience a sharp, shooting pain in you calves. * If you discover a hard, reddened area on your breast or if you experience flu-like symptoms. DIET: * Eat regular, well-balanced meals. * Drink plenty of fluids daily. Patient Instructions: (DC), Hypertension During (DC) Stand Alone Forms: General Discharge Information Follow-up/Referrals: Annalisa Huston MD [Physician] - 1 Week (call office for follow up visit) Discharge Medications: New hydrocodone-acetaminophen 5-325 mg Tablet 1 tablet PO Q3H PRN (Reason: Moderate Pain (4-6)) Qty: 20 0RF labetalol 100 mg Tablet 300 mg PO Q8HR Qty: 30 0RF Continued PNV [id number]-ferrous fumarate-FA [] 28 mg iron- 800 mcg Tablet 1 tablet PO DAILY Discontinued labetalol 200 mg Tablet 300 mg PO Q8H aspirin 81 mg Tablet 81 mg PO BID Date of admission: 08/13/23 05:24 Primary Care Provider: ALINA
[2023-08-19 08:44] VITALS: BP 148/81; PULSE 73; RESP 20; TEMP 36.6; O2SAT 98
== END 2023-08-17 12:50 | disposition home or self-care (01) | DRG 788 ==
LOC: ANHOB2 08-17 10:27 → ANHLDR 08-19 11:57 → ANHOB2 08-19 11:57
PROVIDERS: Admitting Provider Obstetrics & Gynecology Gynecology; Visit Provider Obstetrics & Gynecology
PROC: 10D00Z1 Extraction of Products of Conception, Low, Open Approach (ICD-10-PCS; CPT 59514; principal; 2023-08-13 07:30)
DX: O11.4 Pre-existing hypertension with pre-eclampsia, complicating childbirth (principal); O34.13 Maternal care for benign tumor of corpus uteri, third trimester; Z23 Encounter for immunization; Z3A.37 37 weeks gestation of pregnancy; Z37.0 Single live birth
CPT/HCPCS: 36415; 85025; 85027; 86592; 86850; 86900; 86901; 88307; 90471; 90686; A9270; G0008; J0690; J1200; J1885; J2274; J2405; J2590; J2704; J3480; J7120